=== PATIENT | female | born 1950 | race Caucasian/White ===

== ENCOUNTER 2017-09-28 08:42 | Emergency (ER) | payer MEDICARE, BC ==
[2017-09-28 08:52] VITALS: BP 141/78
--- NOTE | 2017-09-28 09:27 | UC ---
Throat Pain/Nasal Jovan HPI - History of Current Complaint Chief Complaint: UCRespiratory Stated Complaint: SORE THROAT Time Seen by Provider: 09/28/17 09:25 Hx Obtained From: Patient ?: No Onset/Duration: Gradual Onset, Lasting Weeks - 10 days, Still Present Severity: Moderate Pain Intensity: 6 Pain Scale Used: 0-10 Numeric Cough: Nonproductive - Allergies/Home Medications Allergies/Adverse Reactions: Allergies Allergy/AdvReac Type Severity Reaction Status Date / Time tetracycline Allergy Nausea And Verified 09/28/17 08:54 Vomiting Tetracyclines Allergy Nausea And Verified 09/28/17 08:54 Vomiting cockroache Allergy Itching Uncoded 09/28/17 08:54 dust mites Allergy Itching Uncoded 09/28/17 08:54 Home Medications: Home Medications Anastrozole 5 gm MC 09/28/17 [History] PMH/Surg Hx/FS Hx/Imm Hx Endocrine History: Hypothyroidism, Dyslipidemia Cardiovascular History: Hypertension - Surgical History Surgical History: Yes Surgery Procedure, Year, and Place: RIGHT BREAST BIOPSY - Family History Known Family History: Positive: None Family History: No FHx of breast CA - Social History Occupation: Retired Lives: With Family Alcohol Use: Daily Alcohol Amount: 1-2 Substance Use Type: None Smoking Status (MU): Never Smoked Tobacco Have You Smoked in the Last Year: No Review of Systems Constitutional: Negative Skin: Negative Eyes: Negative ENT: Sore Throat Respiratory: Cough - "throat tickle" Cardiovascular: Negative Gastrointestinal: Negative Genitourinary: Negative Motor: Negative Neurovascular: Negative Musculoskeletal: Negative Neurological: Negative Psychological: Negative Is Patient Immunocompromised?: No All Other Systems Reviewed And Are Negative: Yes Physical Exam Triage Information Reviewed: Yes Appearance: Well-Appearing, No Pain Distress, Well-Nourished Vital Signs: Initial Vital Signs Temp 97.4 F 09/28/17 08:49 Pulse 62 09/28/17 08:49 Resp 18 09/28/17 08:49 BP 141/78 09/28/17 08:49 Pulse Ox 100 09/28/17 08:49 Vital Signs Reviewed: Yes Eye Exam: Normal Eyes: Positive: Conjunctiva Clear ENT Exam: Normal ENT: Positive: Normal ENT inspection, Hearing grossly normal, Pharynx normal, TMs normal, Uvula midline. Negative: Nasal congestion, Tonsillar swelling, Tonsillar exudate, Trismus, Muffled voice, Hoarse voice, Dental tenderness, Sinus tenderness Dental Exam: Normal Neck exam: Normal Neck: Positive: Supple, Nontender, No Lymphadenopathy Respiratory Exam: Normal Respiratory: Positive: Chest non-tender, Lungs clear, Normal breath sounds, No respiratory distress, No accessory muscle use Cardiovascular Exam: Normal Cardiovascular: Positive: RRR, No Murmur, Pulses Normal, Brisk Capillary Refill Musculoskeletal Exam: Normal Musculoskeletal: Positive: Strength Intact, ROM Intact Neurological Exam: Normal Psychological Exam: Normal Skin Exam: Normal Diagnostics - Laboratory Diagnostic Studies Completed/Ordered: RST (-) Throat Pain/Nasal Course/Dx - Course Assessment/Plan: Increase fluids, otc medications for symptom relief, follow BP with pcp - Differential Dx/Diagnosis Provider Diagnoses: Viral illness, HTN in poor control Discharge - Discharge Plan Condition: Stable Disposition: HOME Patient Education Materials: Pharyngitis (ED), Viral Syndrome (ED), Hypertension (ED) Referrals: Izabela Zimmerman NP [Primary Care Provider] - 2 Weeks Additional Instructions: Your blood pressure was slightly elevated to day follow with your primary care provider in 2-4 weeks for a recheck
== END 2017-09-28 09:40 | disposition home or self-care (01) ==
LOC: UCEAST 08:42
DX: B34.9 Viral infection, unspecified (principal); I10 Essential (primary) hypertension; E03.9 Hypothyroidism, unspecified; E78.5 Hyperlipidemia, unspecified
CPT/HCPCS: 87651; 99211; G0463

== ENCOUNTER 2019-06-12 14:58 | Emergency (ER) | payer MEDICARE, BC ==
[2019-06-12 15:23] VITALS: BP 132/82
[2019-06-12] MEDS ORDERED: Fluorescein Sodium TOPICAL* 1 MG TEST STRIP OPHTHALMIC ONE (15:43)
[2019-06-12] MEDS ORDERED: Tetracaine 0.5% OPTH.SOL 4 ML* 1 DROP BTL LEFT EYE ONE (15:43)
[2019-06-12] MEDS ORDERED: Erythromycin OPTH OINT* APPLIC OINT LEFT EYE ONE (16:29)
--- NOTE | 2019-06-12 16:31 | UC ---
Eye Complaint HPI - HPI Summary HPI Summary: 68 year old female, no prior eye problems, states yesterday while working in [employer] felt FB in eye, not sure what, for a few seconds, felt it come out of eye. Was OK last night, work up this AM with reddness, iritation, FB sensation in upper lid that moves from right to left side. flushed this AM, made if feel worse, self unable to see anything in eye. no fever, chills, no vision changes. + swelling to upper lid - History of Current Complaint Chief Complaint: UCEye Stated Complaint: eye complaint Time Seen by Provider: 06/12/19 15:19 Hx Obtained From: Patient ?: No Onset/Duration: Sudden Onset, Lasting Hours Timing: Constant Severity Initially: Moderate Severity Currently: Moderate Pain Intensity: 5 Pain Scale Used: 0-10 Numeric Location of Injury: Conjunctiva, Eye Lid (upper) Character: Dull Aggravating Factor(s): Blinking Alleviating Factor(s): Nothing Associated Signs And Symptoms: Positive: Drainage (Clear), Swelling. Negative: Photophobia, Vision Impairment Bilateral, Vision Impairment Right, Vision Impairment Left, Fever - Allergies/Home Medications Allergies/Adverse Reactions: Allergies Allergy/AdvReac Type Severity Reaction Status Date / Time Tetracyclines Allergy Nausea And Verified 06/12/19 15:23 Vomiting cockroache Allergy Itching Uncoded 09/28/17 08:54 dust mites Allergy Itching Uncoded 09/28/17 08:54 Home Medications: Home Medications Lisinopril [Lisinopril 30 MG-] 30 mg PO DAILY 06/12/19 [History Confirmed ] PMH/Surg Hx/FS Hx/Imm Hx Previously Healthy: Yes - Surgical History Surgical History: Yes Surgery Procedure, Year, and Place: RIGHT BREAST BIOPSY - Family History Known Family History: Positive: None Family History: No FHx of breast CA - Social History Alcohol Use: Daily Alcohol Amount: 1-2 Substance Use Type: None Smoking Status (MU): Never Smoked Tobacco Have You Smoked in the Last Year: No Review of Systems All Other Systems Reviewed And Are Negative: Yes Constitutional: Negative: Fever, Chills, Fatigue Eyes: Positive: Drainage, Eye Redness, Photophobia. Negative: Blurred Vision, Diplopia ENT: Negative: Sore Throat, Ear Ache, Nasal Discharge, Sinus Congestion, Sinus Pain/Tenderness Neurological: Positive: Negative. Negative: Headache Is Patient Immunocompromised?: No Physical Exam Triage Information Reviewed: Yes Appearance: Well-Appearing, No Pain Distress, Well-Nourished Vital Signs: Initial Vital Signs Temp 98.4 F 06/12/19 15:16 Pulse 76 06/12/19 15:16 Resp 16 06/12/19 15:16 BP 132/82 06/12/19 15:16 Pulse Ox 100 06/12/19 15:16 Vital Signs Reviewed: Yes Eyes: Positive: Conjunctiva Inflamed, Discharge - watery L only, Other: - emoi, PERRLA vision =, fluo staining negative for FB, abrasion, + inflammed conjunctiva, worse at 6-10, 2-4' oclock position, no pain with EMOI, light. ENT: Positive: Hearing grossly normal Musculoskeletal Exam: Normal - normal gait Neurological Exam: Normal Psychological Exam: Normal Skin: Positive: Other - left upper eyelid slight erythema, mild edema, non- pitting, no periorbital tenderness. Negative: Rashes Eye Complaint Course/Dx - Course Course Of Treatment: negative fluor- Conjunctivitis due to foreign body - Erythromycin ointmetn 4 times daily to prevent infection, keep area lubricated - Motrin every 6 hours, 400-600mg, to decrease swelling, pain - Cool compresses for pain, swelling every 2-3 hours - cool tap water on wash cloth - Follow up with ophthamalogy tomorrow if no improvement or go to ER with worsening symptoms. - Differential Dx/Diagnosis Differential Diagnosis/HQI/PQRI: Periorbital Cellulitis, Uveitis Provider Diagnosis: Conjunctivitis, chemical Discharge ED - Sign-Out/Discharge Documenting (check all that apply): Patient Departure All imaging exams completed and their final reports reviewed: No Studies - Discharge Plan Condition: Good Disposition: HOME Prescriptions: Erythromycin OPTH OINT* [Erythromycin 0.5% OPTH OINT*] 1 applic LEFT EYE QID #1 ophth.oint Patient Education Materials: Conjunctivitis (ED), Cold Compress or Soak (ED) Referrals: Izabela Zimmerman NP [Primary Care Provider] - Additional Instructions: Conjunctivitis due to foreign body - Erythromycin ointmetn 4 times daily to prevent infection, keep area lubricated - Motrin every 6 hours, 400-600mg, to decrease swelling, pain - Cool compresses for pain, swelling every 2-3 hours - cool tap water on wash cloth - Follow up with ophthamalogy tomorrow if no improvement or go to ER with worsening symptoms. - Billing Disposition and Condition Condition: GOOD Disposition: Home
== END 2019-06-12 16:42 | disposition home or self-care (01) ==
LOC: UCEAST 14:58
DX: H10.212 Acute toxic conjunctivitis, left eye (principal); R53.83 Other fatigue; Z88.1 Allergy status to other antibiotic agents; Z91.09 Other allergy status, other than to drugs and biological substances
CPT/HCPCS: 99212; A9270-GY; G0463